=== PATIENT | female | born 1940 | race Caucasian/White ===

== ENCOUNTER 2016-09-17 18:51 | Inpatient (IN) | payer BC, OTHER ==
[~2016-09-17] VITALS: Ht 172.7 cm; Wt 71.7 kg
[2016-09-17 19:00] VITALS: BP 181/76; PULSE 78; RESP 20; TEMP 97.9; O2SAT 98
[2016-09-17 20:04] LABS: BILIRUBIN,URINE NEGATIVE (NEGATIVE); CLARITY/URINE CLEAR (CLEAR); COLOR,URINE YELLOW (YELLOW); GLUCOSE,URINE NEGATIVE (NEGATIVE); KETONES,URINE 2+ (NEGATIVE); NITRITE, URINE NEGATIVE (NEGATIVE); PH,URINE 5.5 (5.0-8.0); PROTEIN URINE NEGATIVE (NEGATIVE); UROBILINOGEN,URINE 0.2 (0.2-1.0)
[2016-09-17 20:11] LABS: BLOOD, URINE TRACE (NEGATIVE); LEUKOCYTE ESTERASE ,URINE TRACE (NEGATIVE)
[2016-09-17 20:12] LABS: BACTERIA,URINE FEW /HPF (None Seen); MUCUS,URINE 2+ /LPF (None Seen); RBC,URINE 0-3 /HPF (0-3)
--- NOTE | 2016-09-17 20:25 | NUR ---
Placed in room 03 . Placed on hot punch press operator, blood pressure machine and pulse oximeter. To gown for exam. Side rails up. Report given to KAYDEN Mauro.
[2016-09-17 20:32] LABS: BASOPHILS # (AUTO) 0.1 K/uL (0.0-0.2); BASOPHILS % (AUTO) 0.8 % (0.0-2.0); EOSINOPHILS # (AUTO) 0.1 K/uL (0.0-0.4); EOSINOPHILS % (AUTO) 0.5 % (0.0-4.0); HEMATOCRIT 46.3 % (36-48); HEMOGLOBIN 15.3 g/dL (12.0-16.0); LYMPHOCYTES # (AUTO) 1.9 K/uL (1.0-5.5); LYMPHOCYTES % (AUTO) 14.6 % (20.5-51.5); MEAN CORPUSCULAR HEMOGLOBIN 32 pg (27-31); MEAN CORPUSCULAR HGB CONC 33 % (32-36); MEAN CORPUSCULAR VOLUME 96 fL (79.0-98.0); MONOCYTES # (AUTO) 0.4 K/uL (0.0-1.0); MONOCYTES % (AUTO) 3.4 % (1.7-9.3); NEUTROPHILS # (AUTO) 10.7 K/uL (1.8-7.7); NEUTROPHILS % (AUTO) 80.7 % (40.0-70.0); PLATELET COUNT (AUTO) 338 K/uL (130-430); RED BLOOD CELL COUNT(AUTO) 4.85 MIL/uL (4.2-6.2); RED CELL DISTRIBUTION WIDTH 12.3 % (9.0-15.0); WHITE BLOOD COUNT (AUTO) 13.2 K/uL (4.8-10.8)
--- NOTE | 2016-09-17 20:40 | NUR ---
pt. to er AAOx4 c/o lower abdominal pain, states that the pain started yesterday, took keflex and cipro as prescribed when she was Dx with diverticulitis, states +Nausea denies Vomiting, denies Diarrhea, paIN 01/18 states "4TH ATTACK" clear speech follows commands
--- NOTE | 2016-09-17 20:45 | NUR ---
ER at bedside examining patient.
[2016-09-17 20:54] LABS: ANION GAP 7 (5-15); CALCIUM 9.2 mg/dL (8.4-11.0); CHLORIDE 99 mmol/L (98-107); CREATININE 0.91 mg/dL (0.55-1.30); GLUCOSE 130 mg/dL (70-99); POTASSIUM 3.7 mmol/L (3.5-5.1); PROTHROMBIN TIME 10.5 SECS (9.5-12.5); SODIUM SERUM 135 mmol/L (136-145); UREA NITROGEN, BLOOD 17 mg/dL (8-21)
[2016-09-17 20:58] LABS: ALANINE AMINOTRANSFERASE 29 U/L (12-78); ALBUMIN 4.1 g/dL (3.4-4.8); AMYLASE 61 U/L (0-100); ASPARTATE AMINOTRANSFERASE 26 U/L (10-37); LIPASE 130 U/L (73-393); TOTAL BILIRUBIN 0.3 mg/dL (0.0-1.0); TOTAL PROTEIN, SERUM 7.4 g/dL (6.4-8.3)
[2016-09-17] MEDS ORDERED: LEVOFLOXACIN 500 MG TABLET PO ONE (21:00)
[2016-09-17] MEDS ORDERED: MORPHINE 2 MG/ML INJ. SYRINGE IM ONE (21:00)
[2016-09-17] MEDS ORDERED: SULFAMETHOXAZOLE/TRIMETHOPR DS 1 TABLET PO ONE (21:00)
--- NOTE | 2016-09-17 21:30 | NUR ---
# 20 gauge angiocath placed to lfa. Use of asceptic technique. Opsite placed over site. Blood return noted. Flushed with 10 cc of normal saline. No evidence of infiltration noted. Patient tolerated well.
[2016-09-17] MEDS ORDERED: NACL 0.9% 1,000 ML IV ONE (21:45)
--- NOTE | 2016-09-17 22:00 | NUR ---
dr. denson at bedside speaking to the pt. about treatment plan
[2016-09-17] MEDS ORDERED: INSULIN REGULAR, HUMAN 100 UNITS/ML, 10 ML VIAL (novoLIN R) SUBCUT PRN (22:45)
[2016-09-17] MEDS ORDERED: ACETAMINOPHEN 325 MG TABLET PO PRN (22:45)
[2016-09-17] MEDS ORDERED: ONDANSETRON HCL 4 MG/2 ML VIAL IVP PRN (22:45)
[2016-09-17] MEDS ORDERED: MORPHINE 2 MG/ML INJ. SYRINGE IVP PRN (22:45)
--- NOTE | 2016-09-17 22:56 | NUR ---
ADMISSION NOTE Received patient from ER via [facility], received report from Zunilda MONIQUE. Patient admitted with diagnosis of abdominal pain, SBO. Patient oriented to hospital routine, call light, toileting and safety-patient verbalized understanding.
--- NOTE | 2016-09-17 22:56 | NUR ---
ADMISSION NOTES; -PT ARRIVED FROM ER DEPT VIA A GURNEY ASSISTING BY JESÚS RN TO ROOM 129-A. DX SBO AND ABDOMINAL PAIN. PT IS ABLE TO AMBULATE FROM A GURNEY TO A BED WITH STEADY GAITS W/O ANY COMPLICATION. PT IS A/OX4. PT IS C/O ABDOMINAL PAIN. WILL GIVE PAIN MED WHEN AVAILABLE BY PHARMACY. IV SITE OF LEFT F/A #20,PATENT, NO S/S ANY INFILTRATION NOTED. DRSG CDI. SKIN INTACT. LUNG SOUNDS CLEAR THROUGHOUT ALL LOBES. ABDOMEN SOFT & NONDISTENDED,BS PRESENT. MITZI PEDIS PULSES NORMAL AND PRESENT, NO EDEMA NOTED. ALL SAFETY MEASURES IN PLACE. DISCUSSED POC,ALL SAFETY MEASURES, PAIN MGMT, NOT TO GET OUT BED IF RECEIVE PAIN MED, PT VERBALIZED UNDERSTANDING. NO VISITOR IS AT BEDSIDE THIS TIME. CALL LIGHT /WIN REACH. CONTINUE TO MONITOR PT.
[2016-09-17 23:00] VITALS: BP 154/78; PULSE 75; RESP 18; TEMP 98.1; O2SAT 98
--- NOTE | 2016-09-17 23:00 | NUR ---
Patient will be admitted to care of dr. denson. Admitted to med surg unit. Will go to room 129a. Summary report printed. Report given to karely coello.
--- NOTE | 2016-09-17 23:10 | NUR ---
REFUSED MITZI LOWER EXTREM SCD -Pt refused to apply SCD mitzi lower extremities even after explained risks and benefits of using SCD. Pt stated,''I can walk fine and I don't need it.''
[2016-09-17 23:13] VITALS: BP 154/78; PULSE 75; RESP 18; TEMP 98.1; O2SAT 98
[2016-09-17] MEDS ORDERED: metroNIDAZOLE 500 mg/NS 100 ML IV ONE (23:30)
[2016-09-17] MEDS ORDERED: GLU500 PO (23:33)
[2016-09-17] MEDS: D5/0.45 NS 1,000 ML IV SCH (23:36)
[2016-09-17] MEDS ORDERED: metroNIDAZOLE 500 mg/NS 200 ML IV ONE (23:42)
--- NOTE | 2016-09-18 00:04 | NUR ---
US NEEDLE LOOM WEAVER IS AT BEDSIDE PERFORMING ABOMINAL US -PT TOLERATED WELL. PT DENIES ANY PAIN,SOB,OR ANY ACUTE DISTRESS THIS TIME. ALL SAFETY MEASURES IN PLACE. CALL LIGHT /WIN REACH. CONTINUE TO MONITOR PT. Addendum: 09/18/16 at 0059 by Leon Han RN ADDITIONAL NOTES; US ABDOMEN DONE AT 0036, PT TOLERATED WELL.
[2016-09-18 01:50] VITALS: BP 134/59; PULSE 66; RESP 17; TEMP 98.8; O2SAT 100
--- NOTE | 2016-09-18 02:00 | NUR ---
ROUNDS; -PT IS RESTING. NO S/S ANY PAIN,CHEST PAIN,SOB,OR ANY ACUTE DISTRESS NOTED. IV SITE OF LEFT F/A #20,PATENT, NO S/S ANY INFILTRATION NOTED. FALL PRECAUTION IN PLACE. ALL SAFETY MEASURES IN PLACE. CALL LIGHT /WIN REACH. CONTINUE TO MONITOR PT.
[2016-09-18 04:00] VITALS: BP 124/58; PULSE 58; RESP 19; TEMP 98.1; O2SAT 98
--- NOTE | 2016-09-18 04:51 | NUR ---
Consultation Paged Reason for consultation: SBO Was consult called: Yes Person who was notified: Allison Consulting Physician: Steven Soni; Dr Stanley is on-call Staff Technologist Specialty: Clinical Services Consultant
[2016-09-18] MEDS: metroNIDAZOLE 500 mg/NS 100 ML IV SCH ×2 (05:10→13:28)
--- NOTE | 2016-09-18 05:25 | NUR ---
ROUNDS; BLOOD SUGAR=89,NO SSI COVERAGE. -PT JUST RETURNED BACK TO BED SAFELY FROM BATHROOM. -PT AWAKES, DENIES PAIN,CHEST PAIN,SOB,OR ANY ACUTE DISTRESS. NO S/S ANY HYPOGLYCEMIC EFFECTS. PT STATED,'' I' M FINE.'' IV SITE OF LEFT F/A #20,PATENT, NO S/S ANY INFILTRATION NOTED. IVF D5 1/2NS @ 100ML/HR. FALL PRECAUTION IN PLACE. ALL SAFETY MEASURES IN PLACE. CALL LIGHT /WIN REACH. CONTINUE TO MONITOR PT.
--- NOTE | 2016-09-18 06:55 | NUR ---
CLOSING NOTES; -PT IS RESTING IN BED. NO S/S ANY PAIN,SOB,OR ANY ACUTE DISTRESS NOTED. IVF D5 1/2NS @ 100ML/HR. IV SITE OF LEFT F/A #20,PATENT, NO S/S ANY INFILTRATION NOTED. CALL LIGHT /WIN REACH. WILL ENDORSE TO ONCOMING NURSE TO CONTINUE CARE.
[2016-09-18 07:08] LABS: BASOPHILS % (AUTO) 0.3 % (0.0-2.0); EOSINOPHILS # (AUTO) 0.2 K/uL (0.0-0.4); HEMATOCRIT 38.3 % (36-48); HEMOGLOBIN 13.2 g/dL (12.0-16.0); LYMPHOCYTES # (AUTO) 2.1 K/uL (1.0-5.5); MEAN CORPUSCULAR HEMOGLOBIN 33 pg (27-31); MEAN CORPUSCULAR HGB CONC 35 % (32-36); MEAN CORPUSCULAR VOLUME 95 fL (79.0-98.0); MONOCYTES # (AUTO) 0.5 K/uL (0.0-1.0); MONOCYTES % (AUTO) 6.5 % (1.7-9.3); NEUTROPHILS # (AUTO) 4.9 K/uL (1.8-7.7); NEUTROPHILS % (AUTO) 63.2 % (40.0-70.0); PLATELET COUNT (AUTO) 255 K/uL (130-430); RED BLOOD CELL COUNT(AUTO) 4.02 MIL/uL (4.2-6.2); RED CELL DISTRIBUTION WIDTH 12.3 % (9.0-15.0); WHITE BLOOD COUNT (AUTO) 7.7 K/uL (4.8-10.8)
[2016-09-18 07:11] LABS: ANION GAP 1 (5-15); CALCIUM 8.6 mg/dL (8.4-11.0); CHLORIDE 106 mmol/L (98-107); CREATININE 0.75 mg/dL (0.55-1.30); GLUCOSE 95 mg/dL (70-99); PHOSPHORUS 3.8 mg/dL (2.7-4.5); POTASSIUM 4.1 mmol/L (3.5-5.1); SODIUM SERUM 139 mmol/L (136-145); UREA NITROGEN, BLOOD 14 mg/dL (8-21)
[2016-09-18 08:00] VITALS: BP 162/72; PULSE 86; RESP 18; TEMP 98; O2SAT 98
--- NOTE | 2016-09-18 08:00 | NUR ---
initial notes rec patient awake alert and with ivf infusing well on the l forearm. no infiltration noted. denies abd pain and npo maintained bed of small bowel follow through. resp easy and unlabored. ambulates to the br at intervals to void. no acute distress. bed in low position and side rails and. call light within reached and knows when to call for assistance.
--- NOTE | 2016-09-18 10:28 | NUR ---
rounds pt was taken to xray for small bowel follow through via wheelchair.no sb noted sen by dr cm at bedside.
[2016-09-18] MEDS ORDERED: GASTROGRAFIN 120 ML ONE (10:29)
[2016-09-18 11:29] VITALS: BP 136/62; PULSE 57; RESP 19; TEMP 97.4; O2SAT 94
--- NOTE | 2016-09-18 12:00 | NUR ---
rounds pt back from small bowel follow through test via wheelchair . dr butts was called re result of the test. npo maintained , bs was checked and no hypo hyperglycemic reaction noted.
[2016-09-18] MEDS: D5/0.45 NS 1,000 ML IV SCH (12:31)
--- NOTE | 2016-09-18 14:02 | NUR ---
rounds awaiting for her full liquid diet and informed patient of possible d/c this pm as per dr cm. no sob noted. at bedside.
[2016-09-18 15:30] VITALS: BP 148/66; PULSE 58; RESP 19; TEMP 97.1; O2SAT 100
--- NOTE | 2016-09-18 16:00 | NUR ---
rounds full liquids aura well. no nausea vomiting noted. due abx givb as ordered. side rails up and locked.
[2016-09-18 18:14] VITALS: BP 148/66; PULSE 58; RESP 19; TEMP 97.1
--- NOTE | 2016-09-18 18:45 | NUR ---
closing notes dr cm was called and discharged patient. id band was removed and heplock. transitional care paper was given , explained and understood with the . refused wheelchair and ambulated. aura full liquid diet. denies abd pain and dr cm was made aware of the patient having diarrhea.
[2016-09-18] MEDS ORDERED: LEVOFLOXACIN 250 MG/D5W 50 ML IV SCH (21:00)
--- NOTE | 2016-09-20 13:53 | NUR ---
Discharge Follow Up Phone Calls: Functional Mental Disability Teacher called and left a voice mail for pt ([phone]) on 09/19/16. METEOROLOGIST LIAISON called pt today and pt's , Roger, answered the phone. Pt's states that pt is doing well; there are no questions regarding discharge or medication instructions; pt has a follow up appointment scheduled with PCP, Dr. Hrenandez; pt checks her blood sugar as directed by PCP. Pt's did not express any other needs or concerns and denied the need for additional follow up at this time. No further follow up phone calls required at this time.
== END 2016-09-18 18:50 | disposition home or self-care (01) | DRG 389 ==
LOC: SED 18:51 → SMU 22:35
PROVIDERS: ADMIT Internal Medicine; ATTEND Internal Medicine
DX: K56.7 Ileus, unspecified (principal); N39.0 Urinary tract infection, site not specified; K56.60 Unspecified intestinal obstruction; D72.829 Elevated white blood cell count, unspecified; E11.9 Type 2 diabetes mellitus without complications; Z79.899 Other long term (current) drug therapy
CPT/HCPCS: 36415; 74250-TC; 76700-TC; 80048; 80053; 81000-TC; 82150-TC; 82962; 83605; 83690-TC; 83735-TC; 84100-TC; 85025; 85610-TC; 85730-TC; 87040-TC; 96372; 99285; J1815; J1956; J2270; J3490; J7030; Q9963

== ENCOUNTER 2016-12-18 08:25 | Day surgery (SDC) | payer BC, OTHER ==
[~2016-12-18] VITALS: Ht 175.3 cm; Wt 72.6 kg
[~2016-12-18 08:25] MED LIST: CEFAZOLIN 1 GM IVPB PREMIX 50 ML IV ONE; GLU500 PO
[2016-12-18] MEDS ORDERED: MIDAZOLAM HCL 5 MG/5 ML VIAL IVP ONE (10:40)
[2016-12-18] MEDS ORDERED: fentaNYL CITRATE 250 MCG/5 ML AMP IV ONE (10:40)
[2016-12-18] MEDS ORDERED: KETOROLAC TROMETHAMINE 15 MG VIAL IVP ONE (10:40)
[2016-12-18] MEDS ORDERED: SEVOFLURANE 15 MIN GAS INH ONE (10:40)
[2016-12-18] MEDS ORDERED: ROCURONIUM BROMIDE 10 MG/ML (ZEMURON) IV ONE (10:40)
[2016-12-18] MEDS ORDERED: NS IRRIG SOLN 1000 ML IR ONE (10:40)
[2016-12-18] MEDS ORDERED: DEXAMETHASONE SOD PHOSPHATE 4 MG/ML VIAL IVP ONE (10:40)
[2016-12-18] MEDS ORDERED: ONDANSETRON HCL 4 MG/2 ML VIAL IVP ONE (10:40)
[2016-12-18] MEDS ORDERED: PROPOFOL 200MG/ 20ML VIAL (DIPRIVAN) IV ONE (10:40)
[2016-12-18] MEDS ORDERED: BUPIVACAINE /EPINEPHRINE/PF 0.25% 30 ML VIAL INJ ONE (10:40)
[2016-12-18] MEDS ORDERED: LR 1,000 ML IV.SOLN IV ONE (10:40)
[2016-12-18] MEDS ORDERED: IOHEXOL 50 ML IV ONE (11:03)
[2016-12-18] MEDS ORDERED: LR 1,000 ML IV SCH (11:32)
[2016-12-18] MEDS ORDERED: HYDROmorphone 2 MG/ML VIAL IVP PRN ×2 (11:45)
[2016-12-18] MEDS ORDERED: MEPERIDINE HCL/PF 25 MG/ML DISP.SYRIN IVP PRN (11:45)
[2016-12-18] MEDS ORDERED: HYDROmorphone 1 MG INJ. 1 MG/ML AMPUL IVP PRN ×2 (11:45→12:00)
[2016-12-18] MEDS ORDERED: HYDROcodone/ACETAMIN 5-325 MG TAB (NORCO/ VICODIN) PO PRN ×2 (12:00)
[2016-12-18] MEDS ORDERED: D5/0.45 NS 1,000 ML IV SCH (13:00)
[2016-12-18 13:20] VITALS: BP_SYST 152
== END 2016-12-18 14:20 | disposition home or self-care (01) ==
LOC: SMU 08:25 → SDS 08:25
PROVIDERS: ATTEND Colon & Rectal Surgery
DX: K80.10 Calculus of gallbladder with chronic cholecystitis without obstruction (principal); I10 Essential (primary) hypertension; E11.9 Type 2 diabetes mellitus without complications; K21.9 Gastro-esophageal reflux disease without esophagitis; E78.00 Pure hypercholesterolemia, unspecified; M19.019 Primary osteoarthritis, unspecified shoulder; I49.3 Ventricular premature depolarization; E55.9 Vitamin D deficiency, unspecified; Z98.890 Other specified postprocedural states; Z98.51 Tubal ligation status; Z87.891 Personal history of nicotine dependence
CPT/HCPCS: 47563; 76000; 82962; 88304; C1727; C1758; J0690; J1100; J1885; J2250; J2405; J2704; J3010; J3490; J7120; Q9967